=== PATIENT | female | born 1955 | race African-American/Black ===

== ENCOUNTER 2023-01-03 23:18 | Emergency (ER) | payer MEDICARE, MEDICAID ==
[~2023-01-03] VITALS: Ht 160 cm; Wt 79.1 kg
[2023-01-04] MEDS ORDERED: fentaNYL 100 MCG/2 ML INJECTION IV ONE (01:15)
[2023-01-04] MEDS ORDERED: PERCOCET 5MG/325MG TAB PO ONE (02:15)
[2023-01-04] MEDS ORDERED: OXYCODONE/APAP 5MG/325MG(HOME DOSE PACK) PO ONE (04:45)
[2023-01-04] MEDS ORDERED: PERC5TAB12 PO (04:51)
[2023-01-04 05:10] VITALS: BP 133/73
== END 2023-01-04 05:25 | disposition home or self-care (01) ==
LOC: EDBD 23:18 → M ED 23:18
DX: S52.601A Unspecified fracture of lower end of right ulna, initial encounter for closed fracture (principal); W19.XXXA Unspecified fall, initial encounter; Y92.410 Unspecified street and highway as the place of occurrence of the external cause; Y93.01 Activity, walking, marching and hiking; Y99.8 Other external cause status; M54.50 Low back pain, unspecified; Z98.84 Bariatric surgery status; Z88.5 Allergy status to narcotic agent; Z88.8 Allergy status to other drugs, medicaments and biological substances
CPT/HCPCS: 70450; 71250; 72125; 73030; 73090; 96374; 99285; J3010